=== PATIENT | male | born 1940 | race Caucasian/White ===

== ENCOUNTER → 2020-04-16 | Outpatient (CLI) | payer MEDICARE ==
--- NOTE | 2020-04-16 16:11 | US ---
EXAMINATION TYPE: US prostate transrectal DATE OF EXAM: 04/16/2020 COMPARISON: NONE CLINICAL HISTORY: R97.20 elevated PSA. This examination was performed using the transrectal probe. EXAM MEASUREMENTS: Gland Size: 6.0 x 3.1 x 4.8cm Volume: 46.6 Predicted PSA: 5.6 Actual PSA (if available):4.7 Heavily calcified central zone. Heterogeneous peripheral zone. IMPRESSION: Discrete hypoechoic areas suspicious for neoplasm is not identified. Blind biopsy could be performed for sufficiently elevated PSA and suspicion. Predicted PSA = volume x 0.12 ng/ml Calculated Volume = 0.5236 x L x W x H
== END | disposition home or self-care (01) ==
LOC: RADUSWWP 09:37
PROVIDERS: ATTEND Internal Medicine
DX: R97.20 Elevated prostate specific antigen [PSA] (principal)
CPT/HCPCS: 76872

== ENCOUNTER → 2023-02-21 | Outpatient (CLI) | payer MEDICARE ==
--- NOTE | 2023-02-21 10:51 | US ---
EXAMINATION TYPE: US Aorta Screening DATE OF EXAM: 02/21/2023 COMPARISON: NONE CLINICAL INDICATION: Male, 82 years old with history of Z13.6 SCREEN CARDIOVASCULAR DISORDER; HTN con trolled with meds. No personal hx AAA. TECHNIQUE: Multiple sonographic images of the abdominal aorta are obtained. FINDINGS: EXAM MEASUREMENTS: Abdominal Aorta: Proximal: 2.3 x 2.6 cm Mid: 1.7 x 1.9 cm Distal: 1.7 x 1.6 cm Bifurcation: Right- 0.7 x 1.1 cm Left- 0.9 x 1.1 cm FIELD IRONWORKER NOTES: No AAA visualized on todays exam IMPRESSION: No evidence for abdominal aortic aneurysm.
== END | disposition home or self-care (01) ==
LOC: RADUSWWP 09:18
PROVIDERS: ATTEND Family Medicine
DX: Z13.6 Encounter for screening for cardiovascular disorders (principal); I10 Essential (primary) hypertension
CPT/HCPCS: 76706

== ENCOUNTER → 2023-03-15 | Outpatient (CLI) | payer MEDICARE ==
--- NOTE | 2023-03-16 11:08 | MR ---
EXAMINATION TYPE: MR Prostate wo/w con DATE OF EXAM: 03/15/2023 9:59 AM COMPARISON: None. CLINICAL INDICATION:Male, 82 years old with history of C61 PROSTATE CA; Prostate cancer. TECHNIQUE: Multi-planar, multi-sequence imaging of the pelvis is performed prior to and following the uncomplicated administration of bolus intravenous gadolinium. CONTRAST: 7.5 Gadavist Interpretive Criteria: PI-RADS v2.1 SERUM PSA: 7.08 on 02/10/2023. 7.1 on 08/19/2022. 7.3 on 08/22/2021. SURGICAL PATHOLOGY: Positive biopsy on 03/29/2022 involving the left lateral mid gland Lea 3+3 6 FINDINGS: Prostatic dimensions: 4.8 x 3.9 x 3.0 cm. "Bullet" Volume:36.76 (PSA density=0.19 ng/mL/mL) CENTRAL GLAND (Central and Transition Zones/CZ+TZ): Multiple bilateral, heterogenous appearing hypertrophic stromal nodules, without suspicious lesion. N o diffusion restricted lesion T2 signal abnormality that is not in a BPH nodule. (PI-RADS 2) PERIPHERAL ZONE (PZ): No evidence of masslike abnormality, or localized perfusional hypervascularity, to further suggest a focus of clinically significant prostate cancer. (PI-RADS 2) SEMINAL VESICLES (SV): Symmetric and unremarkable. PERIPROSTATIC TISSUES: Unremarkable. LYMPH NODES: No enlarged pelvic lymph node. REMAINING PELVIS: Bladder wall is within normal limits given distention. No abnormal free or organized intrapelvic fluid collection. No pathologic bowel dilation or mural thickening. Bilateral fat containing inguinal hernias. OSSEOUS STRUCTURES: No suspicious osseous abnormality. Curvilinear low T1 signal with some higher T2 signal within the reilly bchondral portion of the femoral heads superiorly. Femoral head contour is felt to be maintained. IMPRESSION: 1. No specific features for high-risk prostate cancer. Maximum PI-RADS score: 2. 2. No suspicious osseous lesion. No lymphadenopathy. No evidence of prostate adenocarcinoma involving the periprostatic tissues. 3. Mild BPH, estimated gland volume 36.76 mL. 4. 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 No definitive subchondral collapse at this time.
== END | disposition home or self-care (01) ==
LOC: RADMRIMAIN 08:38
PROVIDERS: ATTEND Urology
DX: C61 Malignant neoplasm of prostate (principal); N40.0 Benign prostatic hyperplasia without lower urinary tract symptoms
CPT/HCPCS: 72197; A9585

== ENCOUNTER 2024-03-01 10:07 | Emergency (ER) | payer MEDICARE ==
--- NOTE | 2024-03-01 10:41 | ED ---
General Adult HPI - General Chief complaint: Recheck/Abnormal Lab/Rx Stated complaint: low oxygen Time Seen by Provider: 03/01/24 10:30 Source: patient, RN notes reviewed Mode of arrival: ambulatory Limitations: no limitations - History of Present Illness Initial comments: 83-year-old male with history of asthma presenting with cough x 5 days with associated sore throat. States cough is dry. He has been taking Mucinex with little relief. He went to clinic today where they told him his oxygen was 90% and sent him to the ER for low oxygen. They performed a chest x-ray. States he has history of asthma however states he has not had to use his inhaler in a long time. He is a non-smoker. Denies wheezing, shortness of breath, chest pain, fever, chills. - Related Data Home Medications Medication Instructions Recorded Confirmed Budesonide/Formoterol Fumarate 2 puff INHALATION RT-BID 03/01/24 03/01/24 [Symbicort 160-4.5 Mcg Inhaler] Cholecalciferol (Vitamin D3) 50 mcg PO HS 03/01/24 03/01/24 [Vitamin D3 (50 Mcg = 2000 Iu)] Empagliflozin [Jardiance] 10 mg PO DAILY 03/01/24 03/01/24 Metoprolol Tartrate [Lopressor] 25 mg PO HS 03/01/24 03/01/24 Metoprolol Tartrate [Lopressor] 50 mg PO DAILY 03/01/24 03/01/24 Montelukast [Singulair] 10 mg PO HS 03/01/24 03/01/24 Multivitamins, Thera [Multivitamin 1 tab PO DAILY 03/01/24 03/01/24 (formulary)] Pioglitazone [Actos] 45 mg PO DAILY 03/01/24 03/01/24 Retinavite 1 tab PO HS 03/01/24 03/01/24 Saxagliptin HCl 5 mg PO DAILY 03/01/24 03/01/24 Simvastatin [Zocor] 40 mg PO HS 03/01/24 03/01/24 Sodium Bicarbonate Tab 650 mg PO DAILY 03/01/24 03/01/24 Tamsulosin [Flomax] 0.4 mg PO HS 03/01/24 03/01/24 lisinopriL [Zestril] 5 mg PO DAILY 03/01/24 03/01/24 Allergies Allergy/AdvReac Type Severity Reaction Status Date / Time amoxicillin Allergy Rash/Hives Verified 03/01/24 11:41 Sulfa (Sulfonamide Allergy Rash/Hives Verified 03/01/24 11:41 Antibiotics) sulfamethoxazole Allergy Rash/Hives Verified 03/01/24 11:41 [From Bactrim] trimethoprim [From Bactrim] Allergy Rash/Hives Verified 03/01/24 11:41 Review of Systems ROS Statement: Those systems with pertinent positive or pertinent negative responses have been documented in the HPI. ROS Other: All systems not noted in ROS Statement are negative. General Exam Limitations: no limitations General appearance: alert, in no apparent distress Head exam: Present: atraumatic, normocephalic, normal inspection Eye exam: Present: normal appearance, PERRL, EOMI. Absent: scleral icterus, conjunctival injection, periorbital swelling ENT exam: Present: normal exam, mucous membranes moist Neck exam: Present: normal inspection. Absent: tenderness, meningismus, lymphadenopathy Respiratory exam: Present: normal lung sounds bilaterally. Absent: respiratory distress, wheezes, rales, rhonchi, stridor Cardiovascular Exam: Present: regular rate, normal rhythm, normal heart sounds. Absent: systolic murmur, diastolic murmur, rubs, gallop, clicks GI/Abdominal exam: Present: soft, normal bowel sounds. Absent: distended, tenderness, guarding, rebound, rigid Neurological exam: Present: alert, oriented X3 Psychiatric exam: Present: normal affect, normal mood Skin exam: Present: warm, dry, intact, normal color. Absent: rash Course Vital Signs 03/01/24 03/01/24 03/01/24 10:13 10:46 12:16 Temperature 98.1 F 97.9 F Pulse Rate 77 64 Respiratory 22 16 16 Rate Blood Pressure 125/58 129/68 O2 Sat by Pulse 94 L 95 96 Oximetry Medical Decision Making - Medical Decision Making Was pt. sent in by a medical professional or institution (, PA, HIGH SCHOOL CHEMISTRY TEACHER, urgent care, hospital, or care home...) When possible be specific @ -No Did you speak to anyone other than the patient for history (EMS, parent, family, police, friend...)? What history was obtained from this source @ -No Did you review nursing and triage notes (agree or disagree)? Why? @ -I reviewed and agree with nursing and triage notes Were old charts reviewed (outside hosp., previous admission, EMS record, old EKG, old radiological studies, urgent care reports/EKG's, care home records)? Report findings @ -Chest x-ray from clinic this morning was reviewed, no acute infiltrate or acute process Differential Diagnosis (chest pain, altered mental status, abdominal pain women, abdominal pain men, vaginal bleeding, weakness, fever, dyspnea, syncope, h eadache, dizziness, GI bleed, back pain, seizure, CVA, palpatations, mental health, musculoskeletal)? @ -COVID, influenza, viral URI, bronchitis, pneumonia, asthma exacerbation, strep pharyngitis EKG interpreted by me (3pts min.). @ -None X-rays interpreted by me (1pt min.). @ -Chest x-ray from clinic this morning interpreted by me reveals no acute process CT interpreted by me (1pt min.). @ -None done U/S interpreted by me (1pt. min.). @ -None done What testing was considered but not performed or refused? (CT, X-rays, U/S, labs)? Why? @ -None What meds were considered but not given or refused? Why? @ -None Did you discuss the management of the patient with other professionals (professionals i.e. , PA, HIGH SCHOOL CHEMISTRY TEACHER, lab, RT, psych nurse, geriatric social worker, wood stock blank handler, teacher, accounting officer, casework supervisor)? Give summary @ -No Was smoking cessation discussed for >3mins.? @ -No Was critical care preformed (if so, how long)? @ -No Were there social determinants of health that impacted care today? How? (Homelessness, low income, unemployed, alcoholism, drug addiction, transportation, low edu. Level, literacy, decrease access to med. care, snf, rehab)? @ -No Was there de-escalation of care discussed even if they declined (Discuss DNR or withdrawal of care, Hospice)? DNR status @ -No What co-morbidities impacted this encounter? (DM, HTN, Smoking, COPD, CAD, Cancer, CVA, ARF, Chemo, Hep., AIDS, mental health diagnosis, sleep apnea, morbid obesity)? @ -None Was patient admitted / discharged? Hospital course, mention meds given and route, prescriptions, significant lab abnormalities, going to OR and other pertinent info. @ -Patient was discharged. Patient was seen and evaluated for cough x 5 days. Patient was seen at clinic this morning and sent to ER for concern of low oxygen at 90% room air. Patient does have a history of asthma, denies any other pulmonary conditions. Patient's vitals are stable upon arrival to ER. Patient is satting 95% on room air. Patient is afebrile. Patient is resting comfortably, nontoxic, no acute distress. Denies shortness of breath, difficulty breathing. Heart and lungs clear to auscultation bilaterally. No sign of bacterial infection. COVID-positive, influenza negative, RSV negative. Chest x-ray reviewed from clinic which revealed no acute process interpreted by me. Discussed diagnosis of COVID with patient. O2 was closely monitored and remained 95% - 96% resting and with ambulation. I believe it is reasonable to discharge patient at this time with close return precautions. Patient is agreeable to plan. Supportive care discussed. Return parameters discussed. Case was discussed with my ER attending Dr. Hathaway. Patient discharged in stable condition. Undiagnosed new problem with uncertain prognosis? @ -No Drug Therapy requiring intensive monitoring for toxicity (Heparin, Nitro, Insulin, Cardizem)? @ -No Were any procedures done? @ -No Diagnosis/symptom? @ -COVID-19 Acute, or Chronic, or Acute on Chronic? @ -Acute Uncomplicated (without systemic symptoms) or Complicated (systemic symptoms)? @ -Uncomplicated Side effects of treatment? @ -No Exacerbation, Progression, or Severe Exacerbation? @ -No Poses a threat to life or bodily function? How? (Chest pain, [place], [place], pneumonia, PE, COPD, DKA, ARF, appy, cholecystitis, CVA, Diverticulitis, Homicidal, Suicidal, threat to staff... and all critical care pts) @ -Not at this time - Lab Data Lab Results 03/01/24 Range/Units 10:42 Influenza Type A (PCR) Not Detected (Not Detectd) Influenza Type B (PCR) Not Detected (Not Detectd) RSV (PCR) Not Detected (Not Detectd) SARS-CoV-2 (PCR) Detected A (Not Detectd) Disposition Clinical Impression: COVID-19 Disposition: HOME SELF-CARE Condition: Stable Instructions (If sedation given, give patient instructions): How to Recover from COVID-19 at Home (ED) Additional Instructions: Take antihistamines such as Mucinex/Zyrtec. You may take Tylenol for sore throat/body aches. Please return to the Emergency Department if symptoms worsen or any other concerns. Is patient prescribed a controlled substance at d/c from ED?: No Referrals: Rory Rodarte PAC [REFERRING] - 1-2 days Time of Disposition: 12:50
[2024-03-01 10:52] VITALS: RESP 16
[2024-03-01 12:57] VITALS: BP 131/72; PULSE 68; TEMP 98
== END 2024-03-01 12:55 | disposition home or self-care (01) ==
LOC: EC 10:07
CPT/HCPCS: 87636; 87651; 99283

== ENCOUNTER → 2024-08-30 | Outpatient (CLI) | payer MEDICARE ==
--- NOTE | 2024-08-31 15:56 | PE ---
EXAMINATION TYPE: PET CT fusion skull to thigh DATE OF EXAM: 08/30/2024 COMPARISON: No recent CT. Prostate MRI from March 2023 Prior PET/CT: None CLINICAL INDICATION: Male, 84 years old with history of prostate ca C61, TECHNIQUE: Following the intravenous administration of 6.96 mCi of Gallium-68 labeled PSMA, whole josiane dy images are performed from the skull base to the midthigh. Images are reviewed on the computer in the coronal, axial, and sagittal planes. Reconstructed rotating images are created on [employer] and reviewed on the computer. A localization and attenuation correction CT is performed i n conjunction with the PET scan. DLP: 676 mGycm SCAN: Initial FINDINGS: NECK: There is normal radiotracer distribution through salivary glands. No abnormal uptake THORAX: No abnormal uptake ABDOMEN:There is normal radiotracer excretion through the renal collecting system. Normal uptake wit hin the liver and spleen. No abnormal uptake PELVIS: Some vague increased uptake is in the posterior lateral left portion of the prostate with an SUV of 5.94 may be the patient's known primary. Suspicious uptake within the intraperitoneal pelvis is not otherwise identified. OSSEOUS STRUCTURES: No abnormal uptake LOCALIZATION CT: Coronary artery calcification is present. COMPARISON: None IMPRESSION: 1. No suspicious changes to suggest metastatic prostate cancer. 2. Patient's known primary may be within the left posterior prostate [facility] Cait Callahan, , 08/31/2024 3:54 PM
== END | disposition home or self-care (01) ==
LOC: RADPETMAIN 11:33
PROVIDERS: ATTEND Radiology Radiation Oncology
DX: C61 Malignant neoplasm of prostate (principal)
CPT/HCPCS: 78815; A9596

== ENCOUNTER → 2024-09-14 | Outpatient (CLI) | payer MEDICARE ==
[2024-09-14 12:50] LABS: Basophils # (A) 0.06 X 10*3/uL (0.00-0.10); Eosinophils # (A) 0.19 X 10*3/uL (0.04-0.35); Eosinophils % (A) 3.1 %; HCT 39.6 % (39.6-50.0); HGB 12.5 g/dL (13.0-17.0); Lymphocytes # (A) 0.79 X 10*3/uL (0.90-5.00); Lymphocytes % (A) 13.1 %; MCH 29.4 pg (27.0-32.0); MCHC 31.6 g/dL (32.0-37.0); MCV 93.2 FL (80.0-97.0); Mean Platelet Volume 9.7 FL (9.5-12.2); Monocytes # (A) 0.55 X 10*3/uL (0.20-1.00); Monocytes % (A) 9.1 %; NRBC Per 100 WBC 0 X 10*3/uL (0.00-0.01); Neutrophils # (A) 4.43 X 10*3/uL (1.80-7.70); Neutrophils % (A) 73.4 %; Platelet Count 232 X 10*3/uL (140-440); RBC 4.25 X 10*6/uL (4.40-5.60); RDW 14.3 % (11.5-14.5); WBC 6.04 X 10*3/uL (4.50-10.00)
[2024-09-14 12:52] LABS: BUN/Creat Ratio 22.87 Ratio (12.00-20.00); Blood Urea Nitrogen 34.3 mg/dL (9.0-27.0); Calcium 8.8 mg/dL (8.7-10.3); Carbon Dioxide 25.5 mmol/L (21.6-31.8); Chloride 101 mmol/L (96-109); Glucose 284 mg/dL (70-110); Sodium 137 mmol/L (135-145)
== END | disposition home or self-care (01) ==
LOC: LABPAT 10:00
PROVIDERS: ATTEND Urology
DX: Z01.812 Encounter for preprocedural laboratory examination (principal); C61 Malignant neoplasm of prostate
CPT/HCPCS: 80048; 85025

== ENCOUNTER 2024-09-26 10:06 | Day surgery (SDC) | payer MEDICARE ==
[2024-09-24 13:23] VITALS: BMI 25.4
[~2024-09-26 10:06] MED LIST: LIDOCAINE 1% (10MG/ML) FOR IV START INTRADERMA PRN; fentaNYL (PF) 50 MCG/ML 2 ML AMP IV PRN
[2024-09-26 10:48] VITALS: TEMP 97.4
[2024-09-26] MEDS: IV FLUID CONTINUATION 1,000 ML IV ONE (10:58)
[2024-09-26 11:00] LABS: Glucose,Whole Blood 180 mg/dL (70-110)
[2024-09-26] MEDS: ONDANSETRON 4 MG/2 ML VIAL IVP PRN (11:02)
[2024-09-26] MEDS: LACTATED RINGERS 1,000 ML IV SCH (11:02)
--- NOTE | 2024-09-26 11:38 | P.GSHP ---
History of Present Illness H&P Date: 09/26/24 Chief Complaint: Prostate cancer The patient is an 84-year-old white male with prostate cancer diagnosed in March 2022. He opted for active surveillance rather than treatment, but repeat biopsies in June 2024 show evidence of disease progression. He has elected to be treated with androgen deprivation therapy and IMRT. He now comes for Barrigel implant to reduce the risk of rectal toxicity. - Cardiovascular Cardiovascular: Reports high blood pressure Past Medical History Past Medical History: Asthma, Coronary Artery Disease (CAD), Diabetes Mellitus, Hyperlipidemia, Hypertension Additional Past Medical History / Comment(s): Prostate Cancer, Basal cell ca History of Any Multi-Drug Resistant Organisms: None Reported Past Surgical History: Coronary Bypass/CABG Additional Past Surgical History / Comment(s): Prostate bx. Sinus surgery, procedure for basal cell -face Past Anesthesia/Blood Transfusion Reactions: No Reported Reaction Smoking Status: Former smoker - Past Family History Mother Family Medical History: No Reported History Medications and Allergies Home Medications Medication Instructions Recorded Confirmed Type Budesonide/Formoterol Fumarate 2 puff INHALATION RT-BID 03/01/24 09/26/24 History [Symbicort 160-4.5 Mcg Inhaler] Cholecalciferol (Vitamin D3) 50 mcg PO HS 03/01/24 09/26/24 History [Vitamin D3 (50 Mcg = 2000 Iu)] Empagliflozin [Jardiance] 10 mg PO DAILY 03/01/24 09/26/24 History Metoprolol Tartrate [Lopressor] 25 mg PO HS 03/01/24 09/26/24 History Metoprolol Tartrate [Lopressor] 50 mg PO DAILY 03/01/24 09/26/24 History Montelukast [Singulair] 10 mg PO HS 03/01/24 09/26/24 History Multivitamins, Thera [Multivitamin 1 tab PO DAILY 03/01/24 09/26/24 History (formulary)] Pioglitazone [Actos] 45 mg PO DAILY 03/01/24 09/26/24 History Retinavite 1 tab PO HS 03/01/24 09/26/24 History Saxagliptin HCl 5 mg PO DAILY 03/01/24 09/26/24 History Simvastatin [Zocor] 40 mg PO HS 03/01/24 09/26/24 History Sodium Bicarbonate Tab 650 mg PO DAILY 03/01/24 09/26/24 History Tamsulosin [Flomax] 0.4 mg PO HS 03/01/24 09/26/24 History lisinopriL [Zestril] 5 mg PO DAILY 03/01/24 09/26/24 History Aspirin [Adult Low Dose Aspirin EC] 81 mg PO DAILY 09/24/24 09/26/24 History Allergies Allergy/AdvReac Type Severity Reaction Status Date / Time amoxicillin Allergy Rash/Hives Verified 09/26/24 10:49 Sulfa (Sulfonamide Allergy Rash/Hives Verified 09/26/24 10:49 Antibiotics) sulfamethoxazole Allergy Rash/Hives Verified 09/26/24 10:49 [From Bactrim] trimethoprim [From Bactrim] Allergy Rash/Hives Verified 09/26/24 10:49 Surgical - Exam Vital Signs Temp Pulse Resp BP Pulse Ox 97.4 F L 58 L 16 146/65 97 09/26/24 10:35 09/26/24 10:35 09/26/24 10:35 09/26/24 10:35 09/26/24 10:35 - General well developed, well nourished, no distress - Respiratory normal respiratory effort - Genitourinary normal penis with no external lesions, testicles non-tender - Rectum Rectum: normal sphincter tone, no masses, other (Prostate mildly enlarged but smooth) - Psychiatric oriented to time, oriented to person, oriented to place, speech is normal, memory intact Results - Labs Abnormal Lab Results - Last 24 Hours (Table) 09/26/24 Range/Units 10:55 POC Glucose (mg/dL) 180 H (70-110) mg/dL Assessment and Plan (1) Malignant neoplasm of prostate Current Visit: No Status: Acute Code(s): C61 - MALIGNANT NEOPLASM OF PROSTATE SNOMED Code(s): 777847135 Plan: The Barrigel implant has been reviewed in detail with the patient. He understands that the rationale for this is to create separation between the prostate and rectum, thus reducing the risk of radiation proctitis. The material begins to breakdown over time and is reabsorbed by the body. Risks include anesthesia, bleeding, infection, and perineal discomfort. He understands that if the rectal wall is perforated the procedure will need to be aborted.
[2024-09-26] MEDS ORDERED: fentaNYL (PF) 50 MCG/ML 2 ML AMP ONE (12:18)
[2024-09-26] MEDS ORDERED: MIDAZOLAM 2 MG/2 ML VIAL ONE (12:18)
[2024-09-26] MEDS: LIDOCAINE 2% INJ 20 MG/ML SQ ONE ×2 (12:35)
--- NOTE | 2024-09-26 13:00 | P.OP ---
Date of Procedure: 09/26/24 Preoperative Diagnosis: Adenocarcinoma of the prostate Postoperative Diagnosis: Same Procedure(s) Performed: Barrigel Implant Anesthesia: MAC Surgeon: Pino Dyson Estimated Blood Loss (ml): 5 IV fluids (ml): 300 Pathology: none sent Condition: stable Disposition: PACU Indications for Procedure: The patient is an 84-year-old white male with prostate cancer diagnosed in March 2022. He opted for active surveillance rather than treatment, but repeat biopsies in June 2024 show evidence of disease progression. He has elected to be treated with androgen deprivation therapy and IMRT. He now comes for Barrigel implant to reduce the risk of rectal toxicity. Operative Findings: 11 mm separation created between prostate and rectum. Description of Procedure: The patient was taken to the operating room and placed in the dorsolithotomy position, with his legs supported in Elias stirrups. The external genitalia was prepped and draped sterilely. The [employer] transrectal ultrasound probe was p laced intrarectally. The prostate was imaged. The probe was then placed within the stabilizing stand. A spinal needle was advanced under ultrasonic guidance to the level of the urogenital diaphragm, and lidocaine was used to infiltrate the tissues as the needle was withdrawn. Next, the Barrigel needle was passed through the midline of the perineum, 1-2 cm anterior to the anal opening. The needle was slowly advanced under ultrasonic guidance until the needle tip was located within the fat plane between the prostate and rectum, at the level of the prostate base. The needle was confirmed to be midline on the axial imaging. Barrigel was then slowly injected under ultrasonic guidance. The prostate lift was symmetrical, and the needle was slowly withdrawn to achieve left at the mid gland and apical levels. 11 mm of separation was created between the prostate and rectum, and only 2 syringes of Barrigel were required. It should be noted that at no point was there any concern of rectal perforation. The needle was withdrawn, as well as the transrectal ultrasound probe, and the procedure was terminated. The patient tolerated the procedure well and was taken to the recovery room in stable condition.
[2024-09-26 13:20] VITALS: BP 155/73; PULSE 59; RESP 18
== END 2024-09-26 13:47 | disposition home or self-care (01) ==
LOC: OR 10:06
PROVIDERS: ATTEND Urology
DX: C61 Malignant neoplasm of prostate (principal); I25.10 Atherosclerotic heart disease of native coronary artery without angina pectoris; J45.909 Unspecified asthma, uncomplicated; E11.9 Type 2 diabetes mellitus without complications; I10 Essential (primary) hypertension; E78.5 Hyperlipidemia, unspecified; Z85.828 Personal history of other malignant neoplasm of skin; Z95.1 Presence of aortocoronary bypass graft; Z87.891 Personal history of nicotine dependence; Z88.0 Allergy status to penicillin; Z88.1 Allergy status to other antibiotic agents; Z88.2 Allergy status to sulfonamides; Z79.51 Long term (current) use of inhaled steroids; Z79.84 Long term (current) use of oral hypoglycemic drugs; Z79.82 Long term (current) use of aspirin; Z79.899 Other long term (current) drug therapy
CPT/HCPCS: 55874; J2250; J0690; J2405; J3010; J2003

== ENCOUNTER → 2025-01-07 | Outpatient (CLI) | payer MEDICARE ==
[2025-01-07 16:01] LABS: Prostate Specific Antigen 0.02 ng/mL (0.000-6.500)
== END | disposition home or self-care (01) ==
LOC: LABWHC1 11:56
PROVIDERS: ATTEND Radiology Radiation Oncology
DX: C61 Malignant neoplasm of prostate (principal)
CPT/HCPCS: 36415; 84153; 84403